=== PATIENT | female | born 1975 | race Caucasian/White ===

== ENCOUNTER 2017-10-07 14:35 | Inpatient (IN) | payer OTHER ==
[~2017-10-07] VITALS: Ht 167.6 cm; Wt 85.7 kg
[2017-10-07] VITALS (12 sets, daily range): BP systolic 123–153; BP diastolic 60–104; PULSE 92–117; RESP 20; TEMP 94.6–103; O2SAT 98–99
[2017-10-07] MEDS ORDERED: LEVOTHYROXINE 400 MCG/NS 500 ML IV SCH ×2 (17:30)
[2017-10-07] MEDS ORDERED: INSULIN HUMAN REGULAR 1,000 UNITS/10 ML VIAL IV PUSH SCH (17:30)
[2017-10-07] MEDS ORDERED: VASOPRESSIN 80 U/NS 100 ML Titrate per Translife Protocol IV PRN ×2 (17:45)
[2017-10-07] MEDS ORDERED: DOPamine 800 MG/500 ML INJ 500 ML IV SCH (17:45)
[2017-10-07] MEDS ORDERED: DEXTROSE 50% IN WATER 50 ML VIAL(D50) IV PUSH SCH (17:45)
[2017-10-07] MEDS ORDERED: CLINDAMYCIN 900 MG/DEX PREMIX 50 ML IV SCH (18:00)
--- NOTE | 2017-10-07 18:04 | RADRPT ---
EXAM DATE/TIME: 10/07/2017 17:20 [facility] COMPARISON: No previous studies available for comparison. INDICATIONS : Evaluate lung status. Organ donation. MEDICAL HISTORY : Unobtainable. SURGICAL HISTORY : Unobtainable. ENCOUNTER: Subsequent ACUITY: 1 day PAIN SCORE: Non-responsive. LOCATION: Bilateral chest FINDINGS: The endotracheal tube is in good position. There is some patchy infiltrate seen in the right upper lo be suggesting parenchymal contusion. The remainder of the parenchyma is clear. The osseous structures are grossly intact. CONCLUSION: 1. Subtle parenchymal opacification in the right upper lobe suggesting possible contusion or asymmetr ic edema. The lungs are otherwise clear. Rui Mckeon MD on October 07, 2017 at 18:00 Board Certified Radiologist. This report was verified electronically.
[2017-10-07 18:09] LABS: INTERNATIONAL NORMALIZED RATIO 1.1 RATIO; PROTHROMBIN TIME - PATIENT 10.9 SEC (9.8-11.6)
[2017-10-07 18:20] LABS: ALBUMIN 1.7 GM/DL (3.4-5.0); ALKALINE PHOSPHATASE 80 U/L (45-117); ALT (GPT) 234 U/L (10-53); AST (GOT) 195 U/L (15-37); BICARBONATE 31.6 MEQ/L (21.0-32.0); BLOOD UREA NITROGEN 20 MG/DL (7-18); CALCIUM 7.3 MG/DL (8.5-10.1); CHLORIDE 100 MEQ/L (98-107); CREATININE 0.74 MG/DL (0.50-1.00); DIRECT BILIRUBIN ADULT 0.4 MG/DL (0.0-0.2); GAMMA GT 61 U/L (5-55); GLOMERULAR FILTRATION RATE 87 ML/MIN (>89); GLUCOSE,RANDOM 100 MG/DL (74-106); INDIRECT BILIRUBIN 0.4 MG/DL (0.0-0.8); MAGNESIUM 1.9 MG/DL (1.5-2.5); PHOSPHORUS 1.5 MG/DL (2.5-4.9); SODIUM (NA) 138 MEQ/L (136-145); TOTAL BILIRUBIN ADULT 0.8 MG/DL (0.2-1.0); TOTAL PROTEIN 4.3 GM/DL (6.4-8.2); TROPONIN I 0.44 NG/ML (0.02-0.05)
[2017-10-07] MEDS: 1/2 NS + KCL 20 MEQ INJ 1,000 ML IV SCH (18:27)
[2017-10-07 18:29] LABS: BACTERIA, URINE MOD /hpf; BILIRUBIN, URINE NEG (NEG); BLOOD, URINE MOD (NEG); GLUCOSE,URINE NEG (NEG); KETONE, URINE NEG (NEG); MUCUS URINE FEW /lpf (OCC); NITRITE,URINE POS (NEG); PH, URINE 7.5 (5.0-8.5); SQUAMOUS EPITHELIAL CELL URINE 1 /hpf (0-5); TRANSITIONAL EPI CELLS, URINE 5 /hpf; URINE COLOR YELLOW (YELLW/STRAW); URINE LEUKOCYTE ESTERASE SMALL (NEG)
[2017-10-07] MEDS ORDERED: methylPREDNISolone SO SUCC INJ 2,000 MG in DEXTROSE 5% IN WATER INJ 250 ML IV ONE ×2 (18:30)
[2017-10-07] MEDS ORDERED: methylPREDNISolone SO SUCC INJ 2,000 MG in SODIUM CHLOR 0.9% 250 ML INJ 250 ML IV ONE (18:30)
[2017-10-07 18:47] LABS: CALCIUM-PROTEIN CORRECTED 8.9 MG/DL (8.5-10.1)
[2017-10-07 19:00] LABS: HEMATOCRIT 22.9 % (35.0-46.0); HEMOGLOBIN 7.8 GM/DL (11.6-15.3); MEAN CORPUSCULAR HEMOGLOBIN 31.4 PG (27.0-34.0); MEAN CORPUSCULAR HGB CONC 34.1 % (32.0-36.0); MEAN PLATELET VOLUME 10.4 FL (7.0-11.0); PLATELET COUNT 51 TH/MM3 (150-450); RED BLOOD COUNT 2.49 MIL/MM3 (4.00-5.30); RED CELL DISTRIBUTION WIDTH 14.5 % (11.6-17.2); WHITE BLOOD COUNT 3.8 TH/MM3 (4.0-11.0)
[2017-10-07] MEDS ORDERED: DOPamine INJ 400 MG in SODIUM CHLOR 0.9% 250 ML INJ 240 ML IV SCH (19:00)
[2017-10-07] MEDS: PHENYLEPHRINE HCL 80 MG/D5W 492 ML ADMIX IV PRN ×4 (19:11→22:06)
[2017-10-07] MEDS: CLINDAMYCIN 900 MG/NS PREMIX 50 ML IV SCH (19:12)
[2017-10-07] MEDS ORDERED: ICU - POTASSIUM PHOSPHATE MONOBASIC 500 MG TAB PO PRN (19:15)
[2017-10-07] MEDS ORDERED: ICU - SODIUM PHOSPHATE 30 MMOL/NS 250 ML IV PRN ×2 (19:15)
[2017-10-07] MEDS ORDERED: ICU - D/C ICU ELECTROLYTE ORDERS PRN (19:15)
[2017-10-07] MEDS ORDERED: ICU - MAGNESIUM SULFATE 4 GM/NS 100 ML IV PRN ×2 (19:15)
[2017-10-07] MEDS ORDERED: ICU - POTASSIUM CHLORIDE/AQUEOUS SOLN 20 MEQ/100 ML IVPB IV PRN (19:15)
[2017-10-07] MEDS ORDERED: ICU - POTASSIUM PHOSPHATE 30 MMOL/NS 250 ML IV PRN ×2 (19:15)
[2017-10-07] MEDS ORDERED: ICU - CALL ORDERING PHYSICIAN PRN (19:15)
[2017-10-07] MEDS ORDERED: ICU - MAGNESIUM OXIDE 400 MG TAB PO PRN (19:15)
[2017-10-07] MEDS ORDERED: ICU - MAGNESIUM SULFATE 2 GM/NS 100 ML IV PRN ×2 (19:15)
[2017-10-07] MEDS ORDERED: POTASSIUM CHLORIDE 25 MEQ EFFERVESCENT TAB PO PRN (19:15)
[2017-10-07] MEDS ORDERED: ICU - POTASSIUM CHLORIDE/AQUEOUS SOLN 40 MEQ/100 ML IVPB IV PRN (19:15)
[2017-10-07 19:36] LABS: BANDS 58 % (0-6); LYMPHOCYTES 4 % (9-44); METAMYELOCYTES 4 % (0-1); NEUTROPHIL # MANUAL DIFF 3.6 TH/MM3 (1.8-7.7); POLYS (SEG NEUTROPHILS) 34 % (16-70)
[2017-10-07] MEDS: RESP: ALBUTEROL 2.5 MG/3 ML NEB (SCH) NEB (20:26)
[2017-10-07] MEDS ORDERED: IOHEXOL 350 MG/ML 10 ML VIAL (for RAD DIAG) IVCONTRAST ONE (21:32)
--- NOTE | 2017-10-07 21:52 | RADRPT ---
EXAM DATE/TIME: 10/07/2017 21:03 [facility] COMPARISON: No previous studies available for comparison. INDICATIONS : Organ donor. IV CONTRAST: 95 cc Omnipaque 350 (iohexol) IV ; Cumulative dose for multiple exams. ORAL CONTRAST: No oral contrast ingested. RADIATION DOSE: 17.51 CTDIvol (mGy) ; Combined studies - Thorax/Abdomen/Pelvis MEDICAL HISTORY : None SURGICAL HISTORY : None. ENCOUNTER: Initial ACUITY: 1 day PAIN SCALE: Non-responsive LOCATION: abdomen TECHNIQUE: Volumetric scanning of the abdomen and pelvis was performed. Using automated exposure control and ad justment of the mA and/or kV according to patient size, radiation dose was kept as low as reasonably achievable to obtain optimal diagnostic quality images. DICOM format image data is available electro nically for review and comparison. FINDINGS: LOWER LUNGS: There is consolidation seen in the lower lobes bilaterally. There is near total opacification of the visualized portion of the left lower lobe. There is a mild amount of left pleural fluid present. LIVER: There is a 1.4 cm hypodensity seen at the superior aspect of the right lobe of the liver. The liver i s otherwise normal. This high density material seen within the gallbladder. SPLEEN: Normal size without lesion. PANCREAS: Within normal limits. KIDNEYS: Normal in size and shape. There is no mass, stone or hydronephrosis. ADRENAL GLANDS: Within normal limits. VASCULAR: There is no aortic aneurysm. BOWEL/MESENTERY: There appears to be edema seen throughout the colonic kauffman. There is a rectal tube. There is free fl uid in the peritoneal cavity. ABDOMINAL WALL: Within normal limits. RETROPERITONEUM: There is no lymphadenopathy. BLADDER: No wall thickening or mass. There is a Benjamin catheter. REPRODUCTIVE: Within normal limits. INGUINAL: There is no lymphadenopathy or hernia. MUSCULOSKELETAL: Within normal limits for patient age. CONCLUSION: 1. Patchy areas of consolidation in the lower lobes bilaterally with dense consolidation in the visua lized portion of the left lower lobe. 2. Nonspecific 1.4 cm hepatic lesion at the superior aspect of the right lobe. Otherwise the liver is normal. 3. The kidneys appear normal. 4. The pancreas appears normal. Varghese Pang MD on October 07, 2017 at 21:45 Board Certified Radiologist. This report was verified electronically.
--- NOTE | 2017-10-07 21:56 | RADRPT ---
EXAM DATE/TIME: 10/07/2017 21:03 [facility] COMPARISON: No previous studies available for comparison. INDICATIONS : organ donor. IV CONTRAST: 95 cc Omnipaque 350 (iohexol) IV ; Cumulative dose for multiple exams. RADIATION DOSE: 17.51 CTDIvol (mGy) ; Combined studies - Thorax/Abdomen/Pelvis MEDICAL HISTORY : None SURGICAL HISTORY : None. ENCOUNTER: Initial ACUITY: 1 day PAIN SCALE: Non-responsive LOCATION: chest TECHNIQUE: Volumetric scanning of the chest was performed. Using automated exposure control and adjustment of t he mA and/or kV according to patient size, radiation dose was kept as low as reasonably achievable to obtain optimal diagnostic quality images. DICOM format image data is available electronically for review and comparison. Follow-up recommendations for detected pulmonary nodules are based at a minimum on nodule size and pa tient risk factors according to Fleischner Society Guidelines. FINDINGS: LUNGS: There is increased densities throughout the left lower lobe which appears decreased in size suggestin g that is secondary to atelectasis. There are patchy areas of consolidation seen throughout both lung s including a cavitary area seen in the anterior left upper lobe measuring up to 2.7 cm. There are sm all nodules seen throughout the lungs. This suggests a widespread inflammatory process. PLEURA: There is a mild left pleural effusion. MEDIASTINUM: The heart and great vessels demonstrate no acute abnormality. There mild prominence in the AP window region measuring up to 1.3 cm. AXILLAE: Within normal limits. No lymphadenopathy. SKELETAL: Within normal limits for patient age. MISCELLANEOUS: The visualized upper abdominal organs demonstrate no acute abnormality. CONCLUSION: Multiple patchy areas of consolidation and cavitary change with numerous small nodules seen throughou t concern for a widespread inflammatory process. Varghese Pang MD on October 07, 2017 at 21:49 Board Certified Radiologist. This report was verified electronically.
[2017-10-08] VITALS (11 sets, daily range): BP systolic 122–169; BP diastolic 72–97; PULSE 94–112; RESP 20; TEMP 95.5–100; O2SAT 98–99
[2017-10-08] MEDS: RESP: ALBUTEROL 2.5 MG/3 ML NEB (SCH) NEB ×2 (00:39→03:30)
[2017-10-08 00:41] LABS: AMORPHOUS SEDIMENT, URINE RARE; BACTERIA, URINE RARE /hpf; BILIRUBIN, URINE NEG (NEG); BLOOD, URINE LARGE (NEG); GLUCOSE,URINE NEG (NEG); KETONE, URINE NEG (NEG); NITRITE,URINE NEG (NEG); PH, URINE 7.5 (5.0-8.5); URINE COLOR YELLOW (YELLW/STRAW); URINE LEUKOCYTE ESTERASE TRACE (NEG)
[2017-10-08] MEDS: CLINDAMYCIN 900 MG/NS PREMIX 50 ML IV SCH ×2 (01:15→04:57)
[2017-10-08] MEDS ORDERED: methylPREDNISolone SO SUCC INJ 1,000 MG in SODIUM CHLORIDE 0.9% INJ 100 ML IV SCH (02:30)
[2017-10-08 02:41] LABS: HEMATOCRIT 33.3 % (35.0-46.0); HEMOGLOBIN 11.4 GM/DL (11.6-15.3); MEAN CELL VOLUME 90.2 FL (80.0-100.0); MEAN CORPUSCULAR HGB CONC 34.3 % (32.0-36.0); MEAN PLATELET VOLUME 10.5 FL (7.0-11.0); PLATELET COUNT 81 TH/MM3 (150-450); RED BLOOD COUNT 3.69 MIL/MM3 (4.00-5.30); RED CELL DISTRIBUTION WIDTH 14.6 % (11.6-17.2); WHITE BLOOD COUNT 7.1 TH/MM3 (4.0-11.0)
[2017-10-08] MEDS: 1/2 NS + KCL 20 MEQ INJ 1,000 ML IV SCH (02:43)
[2017-10-08 02:48] LABS: ALBUMIN 1.7 GM/DL (3.4-5.0); BICARBONATE 29.8 MEQ/L (21.0-32.0); CALCIUM 7.3 MG/DL (8.5-10.1); CALCIUM-PROTEIN CORRECTED 8.8 MG/DL (8.5-10.1); CREATININE 0.57 MG/DL (0.50-1.00); TOTAL BILIRUBIN ADULT 1.6 MG/DL (0.2-1.0); TOTAL PROTEIN 4.5 GM/DL (6.4-8.2)
[2017-10-08] MEDS ORDERED: NORMOSOL R INJ 1,000 ML IV ONE (04:00)
[2017-10-08] MEDS ORDERED: PHENYLEPH/NS 1000 MCG/10 ML SYR IV ONE (04:00)
[2017-10-08] MEDS ORDERED: STERILE WATER FOR INJECTION 20 ML VIAL IV ONE (04:00)
[2017-10-08 04:49] LABS: BANDS 25 % (0-6); DOHLE BODIES PRESENT (NONE SEEN); LYMPHOCYTES 4 % (9-44); METAMYELOCYTES 1 % (0-1); MONOCYTES 6 % (0-8); MYELOCYTES 2 % (0-0); NEUTROPHIL # MANUAL DIFF 6.4 TH/MM3 (1.8-7.7); POLYS (SEG NEUTROPHILS) 62 % (16-70)
[2017-10-08] MEDS ORDERED: FUROSEMIDE 20 MG/2 ML VIAL IV PUSH ONE (06:30)
[2017-10-08 13:21] LABS: HEMOGLOBIN A1C 5.7 % (4.3-6.0)
== END 2017-10-08 09:36 | disposition expired | DRG 951 ==
LOC: N05B 14:35 → HIMN 16:52
DX: Z52.9 Donor of unspecified organ or tissue (principal)
CPT/HCPCS: 36430; 36600; 71045; 71260; 74177; 80048; 80053; 80076; 81001; 82150; 82330; 82550; 82552; 82805; 82948; 82977; 83036; 83690; 83735; 84100; 84155; 84484; 84702; 85007; 85027; 85610; 85730; 86850; 86900; 86901; 86920; 87077; 87086; 87186; 88307; 88331; 94640; 94664; J1265; J1815; J1940; J2370; J2930; J3480; J7040; J7050; J7060; J7613; P9016; P9037; Q9967